=== PATIENT | female | born 1955 | race Caucasian/White ===

== ENCOUNTER → 2017-11-18 | Outpatient (CLI) | payer OTHER | LOC: M.RAD 10:46 | DX: M25.521 Pain in right elbow (principal) ==

== ENCOUNTER 2019-05-22 21:24 | Inpatient (IN) | payer OTHER ==
[~2019-05-22] VITALS: Ht 170.2 cm; Wt 67.3 kg
[~2019-05-22 21:24] MED LIST: CRESTOR10 MG PO; VITAMIN D3400 UNI1 PO; [UNRECOGNIZED DRUG - OTHER] PO
[2019-05-22 21:27] VITALS: BP 157/80
[2019-05-22] MEDS ORDERED: ASA81BEC PO (21:40)
[2019-05-22 22:39] LABS: ABSOLUTE EOSINOPHILS 0.1 thou/uL (0.0-0.7); ABSOLUTE LYMPHOCYTES 2.4 thou/uL (0.8-5.3); ABSOLUTE MONOCYTES 0.5 thou/uL (0.0-1.2); ABSOLUTE NEUTROPHILS 2.5 thou/uL (1.6-8.1); BASOPHILS 0.5 %; EOSINOPHILS 1.8 %; HEMATOCRIT 38.9 % (37.0-47.0); HEMOGLOBIN 13.4 gm/dL (12.0-15.0); LYMPHOCYTES 42.8 %; MCHC 34.4 g/dL (28.0-37.0); MPV 9.5 fl. (7.2-11.1); NUCLEATED RBCS 0 /100WBC; PLATELET COUNT* 242 thou/uL (150-400); POLYS 45.9 %; RBC 4.19 mil/uL (4.20-5.00); RDW-CV 13.1 % (10.5-14.5); WBC 5.5 thou/uL (4.0-11.0)
[2019-05-22 22:42] LABS: CALCIUM 9.8 mg/dL (8.5-10.1); CREATININE 0.9 mg/dL (0.6-1.3); POTASSIUM 3.8 mmol/L (3.5-5.1)
[2019-05-22 22:49] LABS: PROTIME 10.1 Seconds (9.20-11.50)
[2019-05-22 22:53] LABS: TOTAL BILIRUBIN 0.2 mg/dL (<0.1-1.0); TOTAL PROTEIN 7.7 g/dL (6.4-8.2)
[2019-05-23] VITALS (7 sets, daily range): BP systolic 98–121; BP diastolic 59–71
[2019-05-23] MEDS ORDERED: ONE DAILY FOR1 EAC3 PO (01:59)
--- NOTE | 2019-05-23 02:51 | NUR ---
PT ADMIT TO ROOM 224 AT 0115. ALERT ORIENTED. DENIES CP OR DISCOMFORT. TELEMETRY SHOWS SR PVCS AND TRIGEMINAL PVCS AT TIMES. HOLTER MONITOR ON PT. UP AD MO IN ROOM. NPO FOR CARDIOLOGY CONSULT. STAYING OVERNIGHT WITH PT IN ROOM. TORRES
[2019-05-23 08:27] LABS: ALBUMIN 3.5 g/dL (3.4-5.0); CALCIUM 8.5 mg/dL (8.5-10.1); CREATININE 0.9 mg/dL (0.6-1.3); POTASSIUM 3.9 mmol/L (3.5-5.1); TOTAL BILIRUBIN 0.2 mg/dL (<0.1-1.0); TOTAL PROTEIN 6.7 g/dL (6.4-8.2)
--- NOTE | 2019-05-23 11:44 | EKG ---
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 Clockwise patient may account for this finding. Electronically Signed On 05-23-2019 11:43:50 SYSTEM ANALYST by Stefan Echeverria [email or web address] <ELECTRONICALLY SIGNED> By: Manuel Echeverria MD, [facility] 05/23/19 1143 28 28 Manuel Echeverria MD, [facility] /EPI
[2019-05-23 14:43] LABS: APTT 31.4 Seconds (25.0-31.3); PROTIME 10.5 Seconds (9.20-11.50)
--- NOTE | 2019-05-23 20:01 | NUR ---
PT VSS, PT SR ON TELE, A&OX4. PT UP AD MO. AT BEDSIDE. PT STAYING FORM HEART CATH ON MON PER DR SAHNI. HOURLY ROUNDING PERFORMED. POSSESSIONS AND CALL LIGHT WITHIN REACH.
[2019-05-24] VITALS: BP 93/60
--- NOTE | 2019-05-24 02:02 | NUR ---
PT ALERT ORIENTED. UP AD MO IN ROOM. TELEMETRY SHOWS SR PVCS. AT BS. DENIES PAIN. WCTM
[2019-05-24 02:05] LABS: HEPATITIS B SURFACE AG Negative (Negative)
[2019-05-24 04:00] VITALS: BP 95/48
[2019-05-24 04:34] LABS: HEMATOCRIT 36.7 % (37.0-47.0); HEMOGLOBIN 12.6 gm/dL (12.0-15.0); MCH 31.6 pg (26.0-34.0); MCHC 34.4 g/dL (28.0-37.0); MPV 8.4 fl. (7.2-11.1); RBC 3.99 mil/uL (4.20-5.00); RDW-CV 12.7 % (10.5-14.5); WBC 4.4 thou/uL (4.0-11.0)
[2019-05-24 04:55] LABS: ALBUMIN 3.3 g/dL (3.4-5.0); ALKALINE PHOSPHATASE 61 U/L (46-116); ANION GAP 8 mmol/L (7-16); BUN 19 mg/dL (7-18); CALCIUM 8.3 mg/dL (8.5-10.1); CHLORIDE 107 mmol/L (98-107); CHOLESTEROL 166 mg/dL (<200); CO2 26 mmol/L (21-32); CREATININE 0.9 mg/dL (0.6-1.3); GLUCOSE 94 mg/dL (70-99); HDL CHOLESTEROL 57 mg/dL (>40); LDL CHOLESTEROL 101 mg/dL (<100); MAGNESIUM 2.2 mg/dL (1.8-2.4); SGOT 21 U/L (15-37); SGPT 29 U/L (30-65); SODIUM 141 mmol/L (136-145); TC:HDL 2.9 Ratio (Not establshd); TOTAL BILIRUBIN 0.3 mg/dL (<0.1-1.0); TRIGLYCERIDE 44 mg/dL (<150); VLDL 9 mg/dL (<40)
[2019-05-24 05:11] LABS: SERUM ASSESSMENT Clear
[2019-05-24 05:21] LABS: TOTAL PROTEIN 6.3 g/dL (6.4-8.2)
[2019-05-24 08:00] VITALS: BP 101/57
[2019-05-24 11:40] VITALS: BP 111/68
--- NOTE | 2019-05-24 12:50 | CON ---
[address] [address] CONSULTATION Name: BIN WINN V Room: [address] IN M.R.#: [id number] Admission: 05/23/19 Attend Phys: Javier Carmona Discharge: Date of : 57 Report #: [id number] THIS REPORT FOR: //name// CC: Javier Crow CARDIOLOGY CONSULTATION HISTORY OF PRESENT ILLNESS: I was asked by Dr. Hernández to see this 64-year-old white female in cardiology consultation for evaluation and treatment of chest pain. This lady has had chest pains going back to October. Typically, they are nonexertional. They occur at rest; however, typically they occur at night. It is not uncommon for them to awaken her from sleep. She describes the chest discomfort as a band-like tightness across her chest, beneath her breasts. The discomfort is also described as a pressure or a heavy squeezing. It can be as severe as 6-7 on a scale of 10 or can be mild as a 5 on a scale of 10. It lasts anywhere from 15 to 20 minutes to up to 2 hours. She has had it intermittently since then. She had an episode of 6 on a scale of 7. It lasted 2 hours on Saturday morning at about 12:38 a.m. Then she had another one last night, that is Saturday night at 7:15 p.m. She did have an echocardiogram within the last week that was normal. She was to have a nuclear stress test, but then decided she did want to have it and she ended up in the ER last night. The chest discomfort is not particularly associated with any nausea, vomiting, diaphoresis or shortness of breath. There is no radiation of the discomfort. She does have an abnormal EKG. She has VPCs on her EKG and she has, what appears to be, an old anteroseptal infarct, that is there are Q-waves in V1 through V3. This could represent clockwise rotation; however, as the echo was normal and did not show any anterior wall abnormal wall motion. She also has nonspecific T waves on this admission EKG. There is a lot of motion artifact, however. She is in sinus rhythm. Additionally, she does have hypercholesterolemia and is on treatment with Crestor 5 mg daily. She has a strong family history of coronary artery disease. Her father had his first AL at age 55. She does not have diabetes or high blood pressure and she does not smoke. She denies any dyspnea on exertion, shortness of breath at rest, orthopnea, PND or edema. She has not had syncope. She does not have history of renal failure. She does not have any evidence of peripheral vascular disease or claudication or open or nonhealing wounds. She has no previous cardiac history. PAST MEDICAL HISTORY: Remarkable for tonsillectomy, breast implants. ALLERGIES: She has no known allergies. MEDICATIONS: Crestor 5 mg daily, aspirin 81 mg daily, Fosamax 35 mg daily. She takes vitamin D 125 mcg daily, Theragran-M daily. FAMILY HISTORY: As described above. There is no family history of sudden . [address] [address] CONSULTATION Name: BIN WINN V Room: [address] IN M.R.#: [id number] Admission: 05/23/19 Attend Phys: Javier Carmona Discharge: Date of : 57 Report #: [id number] SOCIAL HISTORY: She is , does not drink, smoke or use illegal drugs. REVIEW OF SYSTEMS: Positive for palpitations, which go along with VPCs as well as the chest discomfort. She does have osteopenia. Otherwise, review of systems is negative for some 45 different complaints in 14 different system categories. Please see review of system form for details and negatives in review of systems. PHYSICAL EXAMINATION: GENERAL: She presents as well-developed, well-nourished white female, in no acute distress. VITAL SIGNS: Her pulse was 69 and regular, blood pressure was 98/65, respirations 17 and regular, temperature is 97.5. HEENT: His head was atraumatic. Eyes clear. NECK: Supple. There is no jugular venous distention or hepatojugular reflux. Thyroid is not enlarged. There is no adenopathy. SKIN: Warm and dry. Mucous membranes are moist. LUNGS: Clear to auscultation and percussion. HEART: Revealed normal first and second heart sound. There is soft S4. There is no S3. There are no murmurs, rubs, thrills, heaves or gallops. PMI is nondisplaced. ABDOMEN: Soft, flat and nontender. No palpable masses, no organomegaly. EXTREMITIES: Reveal no cyanosis, clubbing or edema. NEUROLOGIC: The patient mentated normally, talked normally and moved all extremities normally. LABORATORY DATA: The patient has had a gallbladder ultrasound done. We are awaiting the results of that. Her admission labs were unremarkable including a troponin that was normal x 2 and a normal NT-proBNP. Her liver functions were normal. In particular, alkaline phosphatase was normal as was her ALT and her bilirubin and her SGOT. IMPRESSION: 1. Chest pain, suspicious for an acute coronary syndrome. 2. Ventricular premature beats. 3. Abnormal EKG. 4. Hypercholesterolemia. 5. Family history of coronary artery disease. RECOMMENDATION: I think unless her gallbladder ultrasound is remarkable, which I suspect it will not be, since she has no right upper quadrant tenderness whatsoever, I would recommend that she have cardiac catheterization and coronary angiography. [address] [address] CONSULTATION Name: BIN WINN V Room: [address] IN [facility].#: [id number] Admission: 05/23/19 Attend Phys: Javier short [place] Discharge: Date of : 57 Report #: [id number] Thank you very much for asking me to see the patient. If there are any questions, please feel free to contact me. <ELECTRONICALLY SIGNED> By: Manuel Echeverria MD, FACC 05/24/19 1250 1036 [id number]. Stefan Echeverria MD, FACC /nt
[2019-05-24 15:37] VITALS: BP 99/55
--- NOTE | 2019-05-24 19:02 | NUR ---
PT VSS, PT UP AD MO, A&OX4, SR WITH PVCS ON TELE TODAY, PT NPO AT MIDNIGHT, CATH PLANNED FOR TOMORROW. HOURLY ROUNDING PERFORMED, POSSESSIONS AND CALL LIGHT WITHIN REACH. STAYING WITH ROOM WITH PATIENT.
[2019-05-24 20:00] VITALS: BP 112/64
[2019-05-25] VITALS (11 sets, daily range): BP systolic 98–122; BP diastolic 50–77
--- NOTE | 2019-05-25 06:53 | NUR ---
ASSUMED CARE OF PT AFTER REPORT AT 1930. PT A&OX4. VSS. PHYSICAL ASSESSMENT COMPLETED AND CHARTED. PT ON RA. PT TRACING SR/PVC/TRIGEMINY ON TELE. PT UPADLIB TO RESTROOM. PT DENIES ANY CHEST PAIN OR SOA. INSTRUCTED PT ON NPO POST MIDNIGHT FOR CARDIAC CATH TODAY. COMMUNICATES UNDERSTANDING. PT ABLE TO SLEEP WELL ON BED. AT BEDSIDE. CALL LIGHT WITHIN REACH.
--- NOTE | 2019-05-25 10:56 | NUR ---
ASSUMED PT CARE AT 0800, AOX4, UP AD MO, O2 SAT 90'S RA. TRACING SR ON TELE. PT DENIES CHEST PAIN. PT NPO, PT FOR HEART CATH. VSS, AM ASSESSMENT CHARTED, HOURLY ROUNDING, WILL CONTINUET TO MONITOR.
--- NOTE | 2019-05-25 15:00 | EKG ---
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: : 1955 Requested By: Cayla Johnson Order Number: [id number] Soraya MD: Pepe Tomlinson Measurements Intervals [place] Rate: 69 P: 42 PA: 165 QRS: -25 QRSD: 97 T: 24 QT: 448 QTc: 480 Interpretive Statements Sinus rhythm Borderline left axis deviation Low voltage, precordial leads Consider anterior infarct Compared to ECG 05/22/2019 21:29:52 Low QRS voltage now present Ventricular premature complex(es) no longer present Electronically Signed On 05-25-2019 15:00:03 UI DEVELOPER DESIGNER by Pepe Tomlinson [email or web address] <ELECTRONICALLY SIGNED> By: Pepe Tomlinson MD, FACC 05/25/19 1500 0039 0039 Pepe Tomlinson MD, [facility] /EPI
--- NOTE | 2019-05-25 15:19 | EKG ---
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
--- NOTE | 2019-05-25 16:42 | NUR ---
Pt lives at home with spouse. No DME or known history of HH or SNF. Pt to dc home with no anticipated dc needs.
--- NOTE | 2019-05-25 18:46 | NUR ---
PT HAD HEART CATH. PT R GROIN CATH SITE C/D/I. PT BEDREST UNTIL 1999. PT VS MONITOR. DENIES PAIN. ALL NEED MET AT THIS TIME. WILL CONTINUE TO MONITOR.
[2019-05-26] VITALS: BP 100/64
[2019-05-26 04:00] VITALS: BP 93/54
[2019-05-26 04:29] LABS: HEMATOCRIT 36.4 % (37.0-47.0); HEMOGLOBIN 12.3 gm/dL (12.0-15.0); MCH 31.2 pg (26.0-34.0); MCHC 33.9 g/dL (28.0-37.0); MPV 8.7 fl. (7.2-11.1); RBC 3.95 mil/uL (4.20-5.00); RDW-CV 12.9 % (10.5-14.5); WBC 5.8 thou/uL (4.0-11.0)
[2019-05-26 05:12] LABS: ALBUMIN 3.3 g/dL (3.4-5.0); CALCIUM 8.1 mg/dL (8.5-10.1); CREATININE 0.9 mg/dL (0.6-1.3); POTASSIUM 3.4 mmol/L (3.5-5.1); TOTAL BILIRUBIN 0.2 mg/dL (<0.1-1.0); TOTAL PROTEIN 6.3 g/dL (6.4-8.2); TROPONIN-I LEVEL 0.1 ng/mL (<0.06)
--- NOTE | 2019-05-26 07:42 | NUR ---
ASSUMED CARE OF PT AFTER REPORT AT 1930. PT A&OX4. VSS. PHYSICAL ASSESSMENT COMPLETED AND CHARTED. PT ON RA. PT TRACING SR/PVC ON TELE. PT UPADLIB TO RESTROOM. POST CATH SITE TO RIGHT GROIN CLEAN, DRY & INTACT. NO BLEEDING OR HEMATOMA NOTED. PT DENIES ANY PAIN OR DISCOMFORT. PT ABLE TO SLEEP WELL ON BED. CALL LIGHT WITHIN REACH.
[2019-05-26 08:00] VITALS: BP 116/69
[2019-05-26 10:00] VITALS: BP 122/67
--- NOTE | 2019-05-26 10:59 | CARD ---
[address] [address] CARDIAC CATH REPORT Name: BIN WINN V Room: [address] IN [facility].#: [id number] Admission: 05/23/19 Attend Phys: Javier hooper [place] Discharge: Date of : 57 Report #: [id number] THIS REPORT FOR: //name// APPROVED REPORT Study performed: 05/25/2019 11:55:30 Patient Details Patient Status: In-Patient Room #: The patient is a 64 year-old female Event Personnel George Pond Clay Temperer, Jose Ha RTR Monitor, Lisandra Sorensen RN, Jennifer Uriostegui RTR Scrub Procedures Performed Left Heart Cath w/or w/o Coronaries [id number] [facility] w/Atherectomy Single LAD [id number] [facility] , PTCA with Stenting Indication Unstable angina Risk Factors Hypercholesterolemia Admission/Lab Medications/Medications given during procedure Angiomax bolus and infusion Procedure Narrative The patient was brought electively to the Cardiac Catheterization Laboratory and was prepped and draped in a sterile manner. The right femoral was infiltrated with 2% Lidocaine subcutaneous anesthesia. A 6fr Ultimum Sheath sheath was inserted into the right femoral artery. Coronary angiography was performed using coronary diagnostic catheters. The right coronary system was accessed and visualized with a Diagnostic JR4 6Fr catheter. The left coronary system was accessed and visualized with a Diagnostic JL4 6Fr catheter. The left ventricle was accessed and visualized with a Diagnostic St. PIG 6Fr catheter. Left ventricular/Aortic Valve gradient assessed via catheter pullback. Left ventriculogram was performed in LEY projection. Pre-demployment femoral angiogram was performed . Closure device was deployed with a 6 Fr Angioseal. The patient tolerated the procedure well and there were no complications associated with the procedure. [place] [address] CARDIAC CATH REPORT Name: BIN WINN V Room: [address]#: [id number] Admission: 05/23/19 Attend Phys: Javier Carmona Discharge: Date of : 57 Report #: [id number] Intraoperative Conscious Sedation Sedation start time: 12:32 Case end Time: 13:17 Fentanyl 25 mcg Versed 2 mg Fluoro Time: 10.0 minutes Dose: DAP 47351 cGycm2 631 mGy Contrast Type and Amount: Visipaque 200 ml Coronary Angiography The patient's coronary anatomy is right dominant. Diagnostic Cath Left Main 0% narrowing LAD 75% proximal stenosis with local dye density difference Circumflex Nondominant vessel with 0% narrowing Right Coronary Large dominant vessel with 0% narrowing Left Ventriculography The left ventricle is normal in size with contractility. The left ventricular ejection fraction is estimated to be 55-60%. Left ventricular wall motion abnormalities are present. There is no mitral insufficiency. Mild anteroapical hypokinesis is noted Hemodynamics The aortic pressure is 114/54 mmHg with a mean of 68 mmHg. The left ventricular pressure is 111/-9 mmHg with a mean of mmHg. The left ventricular end diastolic pressure is 7 mmHg. There was no gradient across the aortic valve upon pullback. PCI Technique Lesion Anticoagulation was achieved with Angiomax. Patient was preloaded with Angiomax IV 10 ml. Percutaneous coronary intervention was performed on the proximal left anterior descending artery segment. The lesion stenosis prior to intervention was 75% with OLENA 3 flow. A 6FR XB 3.0 100CM Guide Catheter was used to engage the Left ostium. A IG: BMW 190cm Interventional Guidewire was used to cross the lesion. BALLOON DILATION A Balloon catheter NC Trek RX 3.0 X 8 was inserted and inflated up to 16.00atm for 33seconds. Additional Inflation: 14.00atm for 10seconds. 2.5 x 10 angiosculpt balloon was inflated to 16 trent and subsequently 20 trent for 20 [place] [address] CARDIAC CATH REPORT Name: BIN WINN V Room: [address] IN [facility].#: [id number] Admission: 05/23/19 Attend Phys: Javier Carmona Discharge: Date of : 57 Report #: [id number] STENT DEPLOYMENT A drug-eluting stent Xience Maribeth 3.92Z01wm was inserted and inflated up to 12.00atm for 16seconds. Additional Inflation: 15.00atm for 10seconds. Additional Inflation: 16.00atm for 10seconds. Final angiography reveals 0 % stenosis with OLENA 3 flow. Conclusion #1 significant single-vessel coronary artery disease with 75% proximal LAD stenosis with local dye density difference #2 normal global left ventricular systolic function, estimate ejection fraction 55-60% with mild anteroapical hypokinesis #3 normal left-sided hemodynamic study #4 successful atherotomy/atherectomy with stenting of the proximal LAD with 0% residual narrowing and OLENA-3 flow to the distal vessel Recommendations Cardiac Risk Reduction Program Aggressive Medical Therapy Medications Administered Aspirin (any) Prasugrel Diagnostic Cath Approved by: George Pond MD Date/Time: 05/26/2019 10:57:00 <ELECTRONICALLY SIGNED> By: George Pond MD, [facility] 05/26/19 1058 1058 1058George Pond MD, FACC /INF
--- NOTE | 2019-05-26 11:12 | NUR ---
ASSUMED PT CARE AT 0800, AOX4, UP AD MO, O2 SAT 90'S RA. TRACING SR ON TELE. R GROIN C/D/I. PT DENIES PAIN. PT FOR DISCHARGE. VSS, AM ASSESSMENT CHARTED. MEDS GIVEN PER MAR. WILL CONTINUE TO MONITOR.
--- NOTE | 2019-05-26 11:15 | EKG ---
[place] [address] ELECTROCARDIOGRAM REPORT Name: BIN WINN V Room: [address] ADM IN M.R.#: [id number] Admission: 05/23/19 Attend Phys: Javier Carmona Discharge: Date of : 57 Report #: [id number] THIS REPORT FOR: //name// [facility] Test Date: 2019-05-26 Test Time: 05:41:22 Pat Name: BIN PERRYOY Department: Room: [address] Gender: F Creative Services Designer: PERRY : 1955 Requested By: George Pond Order Number: [id number] Soraya MD: Estevan Huffman Measurements Intervals [place] Rate: 63 P: 32 OR: 156 QRS: -21 QRSD: 84 T: -10 QT: 481 QTc: 493 Interpretive Statements Sinus rhythm Borderline left axis deviation Anteroseptal infarct, age indeterminate, possible Low voltage throughout Compared to ECG 05/25/2019 14:17:21 No significant changes Electronically Signed On 05-26-2019 11:15:30 PATENT CHEMIST by Estevan Huffman [email or web address] <ELECTRONICALLY SIGNED> By: Estevan Huffman MD, FACC 05/26/19 1115 0541 0541 Estevan Huffman MD, FACC /EPI
[2019-05-26] MEDS ORDERED: EFFIENT10 MG PO (11:36)
[2019-05-26] MEDS ORDERED: CRESTOR10 MG PO (11:36)
[2019-05-26 12:02] VITALS: BP 122/67
--- NOTE | 2019-05-26 12:43 | NUR ---
DISCHARGE PLAN DISCUSS WITH THE PT, MEDICATION PACKET GIVEN, IV, TELE REMOVED. ALL BELONGINGS PACKED AND CHECKED, REMINDED TO FOLLOW UP WITH PCP, CARDIOLOGY, CARDIAC REHAB. LEFT THE UNIT VIA WHEELCHAIR 1240.
== END 2019-05-26 12:47 | disposition home or self-care (01) | DRG 247 ==
LOC: M.ERS 21:24 → M.2W 05-23 00:25 → M.TBA-ER 05-23 00:25 → M.2W 05-23 01:02
PROVIDERS: Internal Medicine; Personal Emergency Response Attendant; ADMIT Family Medicine
PROC: B211YZZ Fluoroscopy of Multiple Coronary Arteries using Other Contrast (ICD-10-PCS; principal; 2019-05-25)
PROC: B215YZZ Fluoroscopy of Left Heart using Other Contrast (ICD-10-PCS; principal; 2019-05-25)
PROC: 027034Z Dilation of Coronary Artery, One Artery with Drug-eluting Intraluminal Device, Percutaneous Approach (ICD-10-PCS; principal; 2019-05-25)
PROC: 4A023N7 Measurement of Cardiac Sampling and Pressure, Left Heart, Percutaneous Approach (ICD-10-PCS; principal; 2019-05-25)
PROC: B41FYZZ Fluoroscopy of Right Lower Extremity Arteries using Other Contrast (ICD-10-PCS; principal; 2019-05-25)
PROC: 02C03ZZ Extirpation of Matter from Coronary Artery, One Artery, Percutaneous Approach (ICD-10-PCS; principal; 2019-05-25)
DX: I25.119 Atherosclerotic heart disease of native coronary artery with unspecified angina pectoris (principal); I49.3 Ventricular premature depolarization; E78.00 Pure hypercholesterolemia, unspecified; E78.5 Hyperlipidemia, unspecified; I25.10 Atherosclerotic heart disease of native coronary artery without angina pectoris; Z82.49 Family history of ischemic heart disease and other diseases of the circulatory system; Z79.82 Long term (current) use of aspirin; Z79.899 Other long term (current) drug therapy

== ENCOUNTER 2019-06-28 17:29 | Observation (INO) | payer OTHER ==
[~2019-06-28] VITALS: Ht 170.2 cm; Wt 68.5 kg
[~2019-06-28 17:29] MED LIST changes: +ASA81BEC PO; +EFFIENT10 MG PO; +ONE DAILY FOR1 EAC3 PO; -VITAMIN D3400 UNI1 PO; +VITAMIN D3400 UNI2 PO
[2019-06-28 17:48] LABS: ABSOLUTE BASOPHILS 0.1 thou/uL (0.0-0.2); ABSOLUTE EOSINOPHILS 0.1 thou/uL (0.0-0.7); ABSOLUTE LYMPHOCYTES 1.6 thou/uL (0.8-5.3); ABSOLUTE MONOCYTES 0.5 thou/uL (0.0-1.2); EOSINOPHILS 1.7 %; HEMATOCRIT 35.7 % (37.0-47.0); HEMOGLOBIN 12.1 gm/dL (12.0-15.0); LYMPHOCYTES 30.7 %; MCH 31.1 pg (26.0-34.0); MCHC 33.9 g/dL (28.0-37.0); MCV 91.9 fL (80.0-100.0); MONOCYTES 8.9 %; MPV 8.3 fl. (7.2-11.1); NUCLEATED RBCS 0 /100WBC; PLATELET COUNT* 250 thou/uL (150-400); POLYS 57.7 %; RBC 3.89 mil/uL (4.20-5.00); RDW-CV 12.9 % (10.5-14.5); WBC 5.2 thou/uL (4.0-11.0)
[2019-06-28 17:59] LABS: CALCIUM 9.1 mg/dL (8.5-10.1); CREATININE 1.2 mg/dL (0.6-1.3); POTASSIUM 3.7 mmol/L (3.5-5.1)
[2019-06-28 18:08] LABS: ALBUMIN 3.9 g/dL (3.4-5.0); MAGNESIUM 2.1 mg/dL (1.8-2.4); TOTAL BILIRUBIN 0.3 mg/dL (<0.1-1.0); TOTAL PROTEIN 7.2 g/dL (6.4-8.2)
[2019-06-28 20:08] VITALS: BP 103/54
[2019-06-28 20:30] VITALS: BP 113/62
[2019-06-29] VITALS (14 sets, daily range): BP systolic 89–120; BP diastolic 47–78
--- NOTE | 2019-06-29 04:08 | NUR ---
RECIEVED PT FROM ER AT 2030H,ON ROOM AIR.NO EPISODE OF CHEST PAIN.PVC'S DECREASED.CONTINUE MONITORING AND TOWARD GOALS.
--- NOTE | 2019-06-29 10:51 | EKG ---
[place] [address] ELECTROCARDIOGRAM REPORT Name: BIN WINN V Room: [address] ADM IN ..#: [id number] Admission: 06/28/19 Attend Phys: Lana Godwin Discharge: Date of : 57 Report #: [id number] THIS REPORT FOR: //name// [facility] ED Test Date: 2019-06-28 Test Time: 17:33:51 Pat Name: BINNICKI WINN Department: Room: [facility] Gender: F Software Development Coordinator: MS : 1955 Requested By: Cb Torre Order Number: [id number] MD: Pepe Tomlinson Measurements Intervals [place] Rate: 71 P: 51 MT: 157 QRS: -39 QRSD: 115 T: 55 QT: 386 QTc: 420 Interpretive Statements Sinus rhythm Ventricular trigeminy Nonspecific IVCD with LAD Low voltage, precordial leads Anteroseptal infarct, old Baseline wander in lead(s) I,III,aVL Compared to ECG 05/26/2019 05:41:22 Ventricular premature complex(es) now present Intraventricular conduction delay now present ST (T wave) deviation now present Myocardial infarct finding still present Electronically Signed On 06-29-2019 10:50:56 CAR BODY MECHANIC by Pepe Tomlinson [email or web address] <ELECTRONICALLY SIGNED> By: Pepe Tomlinson MD, [facility] 06/29/19 1050 1733 1733 Pepe Tomlinson MD, [facility] /EPI
--- NOTE | 2019-06-29 12:31 | CARD ---
[address] [address] CARDIAC CATH REPORT Name: BIN WINN V Room: [address] IN [facility]#: [id number] Admission: 06/28/19 Attend Phys: Lana Godwin Discharge: Date of : 57 Report #: [id number] THIS REPORT FOR: //name// APPROVED REPORT Study performed: 06/29/2019 08:42:34 Patient Details Patient Status: In-Patient Room #: The patient is a 64 year-old female Event Personnel Pepe Tomlinson Loose Hand Packer, Sima Mcleod RN RN, Laquita Bautista RTR Monitor, Jennifer Uriostegui RTR Scrub, Romie Landeros SWEET DOUGH MIXER Scrub Procedures Performed Art Access - R radial artery Left Heart Cath w/or w/o Coronaries [facility] Indication Chest pain Risk Factors Hypercholesterolemia, Coronary Artery Disease Previous Procedures/Diagnoses Previous PCI Admission/Lab Medications/Medications given during procedure Heparin Unfract., Heparin IV 3400 units, Verapamil IA 5 mg total right radial artery, Nitroglycerin IA 400 mcg total right radial artery Procedure Narrative The patient was brought electively to the Cardiac Catheterization Laboratory and was prepped and draped in a sterile manner. The right wrist was infiltrated with 2% Lidocaine subcutaneous anesthesia. A 6F Slender Glidesheath sheath was inserted into the right radial artery. Coronary angiography was performed using coronary diagnostic catheters. The right coronary system was accessed and visualized with a 6F JR4 catheter. The left coronary system was accessed and visualized with a 6F JL4 catheter. The left ventricle was accessed and visualized with a 6F Pigtail catheter. Left ventricular/Aortic Valve gradient assessed via catheter [place]back[place] [address] CARDIAC CATH REPORT Name: BIN WINN V Room: [address]#: [id number] Admission: 06/28/19 Attend Phys: Lana Godwin Discharge: Date of : 57 Report #: [id number] was performed in LEY projection. Closure device was deployed with a 6 Fr vascband. The patient tolerated the procedure well and there were no complications associated with the procedure. There was no hematoma. A 24cm Vasc band applied to right radial artery with 10 ml air. Intraoperative Conscious Sedation Sedation start time: 09:56 Case end Time: 10:25 Fentanyl 25 mcg Versed 2 mg Fluoro Time: 2.3 minutes Dose: DAP 43224 cGycm2 258 mGy Contrast Type and Amount: Visipaque 90 ml Coronary Angiography The patient's coronary anatomy is right dominant. Diagnostic Cath Left Main 0% stenosis LAD stent in proximal lad with 0% stenosis Circumflex 0% stenosis Right Coronary 0% stenosis Left Ventriculography The left ventricle is normal in size with normal contractility. The left ventricular ejection fraction is estimated to be 60-65%. Left ventricular wall motion abnormalities are not present. There is no mitral insufficiency. Hemodynamics The aortic pressure is 103/65 mmHg with a mean of 81 mmHg. The left ventricular pressure is 114/10 mmHg with a mean of mmHg. The left ventricular end diastolic pressure is 12 mmHg. There was no gradient across the aortic valve upon pullback. Pullback from the left ventricle to the aorta revealed no gradient across the aortic valve. Conclusion 1. no significant restenosis noted of stent in the proximal lad 2. LVEF 60-65% Recommendations [place] [address] CARDIAC CATH REPORT Name: BIN WINN V Room: [address] IN [facility]#: [id number] Admission: 06/28/19 Attend Phys: Lana Godwin Discharge: Date of : 57 Report #: [id number] Medications Administered Prasugrel <ELECTRONICALLY SIGNED> By: Pepe Tomlinson MD, FACC 06/29/19 1230 123 1230Pepe Tomlinson MD, FACC /INF
--- NOTE | 2019-06-29 12:36 | CON ---
[address] [address] CONSULTATION Name: BIN WINN V Room: [address] IN ..#: [id number] Admission: 06/28/19 Attend Phys: Lana Godwin Discharge: Date of : 57 Report #: [id number] THIS REPORT FOR: //name// CC: Manuel Arreola DATE OF SERVICE: 06/29/2019 CARDIOLOGY CONSULTATION HISTORY OF PRESENT ILLNESS: The patient is a 64-year-old white female who I was asked to see in the hospital after she complained of chest pain. The patient had no previous history of heart disease. She does have a long history of hyperlipidemia. She presented to [place] a month ago after she complained of occasional pressure in her chest. It usually occurs when she laid down in bed at night. It lasts for several hours. She had an echocardiogram that showed normal left ventricular function. Nuclear stress test was done. She was noted to have PVCs. However, because of frequent chest discomfort, it was decided to skip the nuclear stress test and go straight to cardiac catheterization, which was performed by Dr. Pond on 05/25/2019 from the right femoral artery. 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 Ejection fraction was normal. She was given Angiomax and he then placed a single drug-eluting stent that was 3.25 mm in diameter x 12 mm long in the LAD. She tolerated this well and was placed on Effient. She was then discharged. She had been going to cardiac rehabilitation. She was doing well until yesterday when she again felt a pressure in her chest, took nitroglycerin that seemed to help. The pain returned and she took another nitroglycerin. She denied any shortness of breath, diaphoresis, or nausea. She had no cough, belch with the episode. She has had no bleeding. She came to the Emergency Room and was admitted. I was asked to see her for further evaluation and treatment. She denies exertional dyspnea. She does note occasional flutter in her chest, but no syncope. PAST MEDICAL HISTORY: She has had breast implants, tonsillectomy, and hyperlipidemia. MEDICATIONS: Include Fosamax, aspirin, Effient, and Crestor. ALLERGIES: She has no known drug allergies. FAMILY HISTORY: Her father had bypass surgery. SOCIAL HISTORY: She is . She and her live in [place]. No smoking. [place] [address] CONSULTATION Name: BIN WINN V Room: [address]#: [id number] Admission: 06/28/19 Attend Phys: Lana Godwin Discharge: Date of : 57 Report #: [id number] REVIEW OF SYSTEMS: No stroke, asthma, peptic ulcer disease, liver disease, kidney disease, cancer, psychiatric illness, and chronic skin condition. PHYSICAL EXAMINATION: GENERAL: Revealed a middle-aged female, who appeared in no distress. VITAL SIGNS: She had a blood pressure of 100/60, pulse of 60. She is afebrile. HEENT: She was anicteric. Conjunctivae pink. Mucous membranes are moist. NECK: Veins are nondistended. CHEST: Clear to auscultation. CARDIOVASCULAR: Regular rate and rhythm, no murmur. ABDOMEN: Soft. EXTREMITIES: Had no edema. SKIN: Warm and dry. NEUROLOGIC: Nonfocal. Her workup, she actually had a 30-day monitor. Dr. Echeverria had the patient aware that showed a sinus rhythm, sinus bradycardia, sinus tachycardia, PVCs including bigeminy and trigeminy, supraventricular premature complexes including short runs of supraventricular tachycardia up to 4 beats. She underwent screening that showed minimal carotid plaque, but no aneurysm. ABIs were normal. Her workup last night, she had portable chest x-ray that showed normal heart size, clear lung hensley. LABORATORY WORK: Sodium 141, potassium 3.7, creatinine 1.2. Liver function studies were normal. Troponin is 0.06. Last month, cholesterol 166, triglyceride 44, HDL 57, LDL 101. White blood cell count 5.2, hematocrit 35.7. IMPRESSION AND RECOMMENDATIONS: 1. Possible unstable angina. Recommend cardiac catheterization. 2. Hyperlipidemia. The patient is on a statin drug. 3. Premature ventricular contractions. <ELECTRONICALLY SIGNED> By: Pepe Tomlinson MD, [facility] 06/29/19 [id number] Tomlinson MD, FAC /nt
== END 2019-06-29 16:20 | disposition home or self-care (01) ==
LOC: M.ERS 17:29 → M.2W 18:32 → M.TBA-ER 18:32 → M.2W 18:32
PROVIDERS: Emergency Medicine Emergency Medical Services; ADMIT Internal Medicine
DX: R07.89 Other chest pain (principal); I25.10 Atherosclerotic heart disease of native coronary artery without angina pectoris; E78.00 Pure hypercholesterolemia, unspecified; Z79.82 Long term (current) use of aspirin; Z79.899 Other long term (current) drug therapy; Z95.5 Presence of coronary angioplasty implant and graft

== ENCOUNTER 2020-12-27 21:31 | Emergency (ER) | payer MEDICARE ==
[~2020-12-27] VITALS: Ht 170.2 cm; Wt 64.4 kg
[2020-12-27 22:03] VITALS: BP 128/76
== END 2020-12-27 22:03 | disposition home or self-care (01) ==
LOC: M.ERS 21:31
DX: H69.92 Unspecified Eustachian tube disorder, left ear (principal)